=== PATIENT | male | born 1950 | race Caucasian/White ===

== ENCOUNTER 2021-08-22 08:36 | Observation (INO) | payer MEDICARE, OTHER ==
[2021-08-22 09:28] LABS: Hemoglobin 17.4 g/dL (13.5-17.5); Mean Corpuscular HGB CONC 33.9 g/dL (32.0-36.0); Mean Corpuscular Hemoglobin 30.1 pg (27.0-33.0); Mean Corpuscular Volume 88.8 fl (81.2-95.1); Platelet Count 221 10x3/uL (150-450); RBC Distribution Width 13.2 % (11.5-14.5); Red Blood Cell (RBC) Count 5.79 10x6/uL (4.32-5.72); White Blood Cell (WBC) Count 11.9 10x3/uL (3.5-10.5)
[2021-08-22 09:38] LABS: #Basophils 0.2 10x3/uL (0.0-0.2); #Eosinphils 1.9 10x3/uL (0.0-0.5); #Monocytes 1.3 10x3/uL (0.0-1.1); #Neutrophils 6.4 10x3/uL (1.5-8.4); %Basophils 1.4 % (0.0-2.0); %Eosinophils 15.6 % (0.0-6.0); %Lymphocytes 17.6 % (18.0-47.0); %Monocytes 11.1 % (0.0-10.0); %Neutrophils 53.8 % (40.0-75.0); ALT (SGPT) 16 U/L (8-55); AST (SGOT) 21 U/L (5-34); Albumin 4.4 g/dL (3.4-4.8); Alkaline Phosphatase 44 U/L (40-110); Anion Gap 13 mmol/L (10-20); BUN (Urea Nitrogen) 21 mg/dL (8.4-25.7); Bilirubin, Total 0.6 mg/dL (0.2-1.2); Calc. Creatinine Clearance 0 mL/min (70-130); Calcium 9.4 mg/dL (7.8-10.44); Carbon Dioxide 23 mmol/L (23-31); Chloride 104 mmol/L (98-107); Glucose 89 mg/dL (80-115); Magnesium 1.9 mg/dL (1.6-2.6); Potassium 4.3 mmol/L (3.5-5.1); Protein, Total 7.4 g/dL (5.8-8.1); Sodium 136 mmol/L (136-145)
[2021-08-22] MEDS ORDERED: Enoxaparin Sodium 100 MG/ML SYRINGE ONE (11:46)
[2021-08-22] MEDS ORDERED: Senokot S 8.6-50 MG TAB PO PRN (12:28)
[2021-08-22] MEDS ORDERED: Calcium Carbonate 500 MG ChewTAB PO PRN (12:28)
[2021-08-22] MEDS ORDERED: Ondansetron ODT 4 MG TAB PO PRN (12:28)
[2021-08-22 13:24] LABS: SARS-CoV-2 NAA Rapid Test Not Detected (NotDetected)
[2021-08-22 13:53] LABS: PTT 29.2 sec (22.0-33.0); Prothrombin Time 11.4 sec (9.5-12.1)
[2021-08-22 16:57] VITALS: BMI 29.6
[2021-08-22 18:26] LABS: Factor IX Test 132.3 % ACTIVE (56-149); Factor VIII Test 149.3 % ACTIVE (56-157)
[2021-08-22 18:27] LABS: DRVVT Confirm 32.8; HEX PHOS LA Tube 1 51.7 SEC; HEX PHOS LA Tube 2 46.4 SEC; Hexagonal Phospholipid Neut 5.3 SEC (0-8.0)
[2021-08-22] MEDS ORDERED: Enoxaparin Sodium 100 MG/ML SYRINGE SC SCH (21:00)
[2021-08-23 04:36] LABS: #Basophils 0.2 10x3/uL (0.0-0.2); #Eosinphils 1.7 10x3/uL (0.0-0.5); #Monocytes 1.2 10x3/uL (0.0-1.1); %Basophils 1.4 % (0.0-2.0); %Eosinophils 15.9 % (0.0-6.0); %Lymphocytes 25.2 % (18.0-47.0); %Monocytes 10.7 % (0.0-10.0); %Neutrophils 46.3 % (40.0-75.0); Mean Corpuscular HGB CONC 33.4 g/dL (32.0-36.0); Mean Corpuscular Hemoglobin 29.8 pg (27.0-33.0); Mean Corpuscular Volume 89.3 fl (81.2-95.1); Mean Platelet Volume 10.3 fl (7.4-10.4); Platelet Count 240 10x3/uL (150-450); RBC Distribution Width 13.2 % (11.5-14.5); White Blood Cell (WBC) Count 10.9 10x3/uL (3.5-10.5)
[2021-08-23 04:49] LABS: Anion Gap 13 mmol/L (10-20); BUN (Urea Nitrogen) 20 mg/dL (8.4-25.7); Calc. Creatinine Clearance 72 mL/min (70-130); Calcium 9.4 mg/dL (7.8-10.44); Carbon Dioxide 26 mmol/L (23-31); Chloride 105 mmol/L (98-107); Glucose 88 mg/dL (80-115); Potassium 4.5 mmol/L (3.5-5.1); Sodium 139 mmol/L (136-145)
[2021-08-23 08:55] VITALS: BP 129/77; TEMP 97.8
[2021-08-23] MEDS ORDERED: Apixaban 5 MG TAB PO SCH (09:00)
[2021-08-30] MEDS ORDERED: Apixaban 5 MG TAB PO SCH (09:00)
== END 2021-08-23 10:13 | disposition home or self-care (01) ==
LOC: CSHERS 08:36 → CSHTELE 16:17
PROVIDERS: ADMIT Family Medicine; ATTEND Nurse Practitioner Family
DX: I26.99 Other pulmonary embolism without acute cor pulmonale (principal); D72.829 Elevated white blood cell count, unspecified; I10 Essential (primary) hypertension; E78.5 Hyperlipidemia, unspecified; K29.50 Unspecified chronic gastritis without bleeding; F41.9 Anxiety disorder, unspecified; Z79.899 Other long term (current) drug therapy; Z20.822 Contact with and (suspected) exposure to COVID-19
CPT/HCPCS: 71045; 71275; 80048; 80053; 83735; 83880; 84484; 85025 ×2; 85240; 85250; 85379; 85598; 85610; 85613; 85730; 86146; 86147; 93005; 93306; 93970; 96372 ×2; 97139 ×2; 99285; G0378 ×3; U0002; 36415; J1650

== ENCOUNTER 2021-10-27 10:37 | Emergency (ER) | payer MEDICARE, OTHER | END 2021-10-27 11:42 | disposition home or self-care (01) | LOC: CSHERS 10:37 | DX: R21 Rash and other nonspecific skin eruption (principal); I10 Essential (primary) hypertension | CPT/HCPCS: 99283 ==